=== PATIENT | female | born 1990 | race Caucasian/White ===

== ENCOUNTER 2018-03-22 01:33 | Inpatient (IN) | payer MEDICAID ==
[~2018-03-22] VITALS: Ht 162.6 cm; Wt 81.2 kg
[2018-03-22] MEDS ORDERED: ONDANSETRON ODT 4 MG PO ONE (02:00)
[2018-03-22] MEDS ORDERED: MORPHINE SULFATE 4 MG/ML, 1ML ONE ×2 (02:00→05:05)
[2018-03-22] MEDS ORDERED: ONDANSETRON ODT 4 MG ONE (02:00)
[2018-03-22] MEDS ORDERED: SODIUM CHLORIDE FLUSH 10ML SYR IVF ONE (02:00)
[2018-03-22] MEDS ORDERED: MORPHINE SULFATE 4 MG/ML, 1ML IVPush PRN (02:00)
[2018-03-22 02:21] LABS: MEAN CORPUSCULAR HEMOGLOBIN 30.9 pg (27.0-34.8); MEAN CORPUSCULAR VOLUME 90.9 fL (80-100); MEAN PLATELET VOLUME 9.1 fL (7.4-10.4); PLATELET COUNT 288 x10^3/uL (130-400); RED BLOOD COUNT 4.78 x10^6/uL (3.82-5.3); RED CELL DISTRIBUTION WIDTH 13.4 % (9.6-15.2)
[2018-03-22 02:25] LABS: MICROSCOPIC INDICATED
[2018-03-22 02:26] LABS: CULTURE INDICATED? YES
[2018-03-22 02:34] LABS: ALANINE AMINOTRANSFERASE 21 U/L (12-78); ALBUMIN 3.5 g/dL (3.4-5.0); ANION GAP 6 mmol/L (5-15); CALCIUM 8.9 mg/dL (8.5-10.1); CHLORIDE 106 mmol/L (98-107); CREATININE 0.83 mg/dL (0.55-1.02)
[2018-03-22 02:37] LABS: BASOPHILS # (AUTO) 0.04 x10^3/uL (0-0.1); BASOPHILS % (AUTO) 0 % (0-1); EOSINOPHILS % (AUTO) 0 % (1-7); LYMPHOCYTES # (AUTO) 2.52 x10^3/uL (1-3.4); LYMPHOCYTES % (AUTO) 10 % (22-44); MD SCAN; MONOCYTES # (AUTO) 0.46 x10^3/uL (0.2-0.8); MONOCYTES % (AUTO) 2 % (2-9); NEUTROPHILS # (AUTO) 23.52 x10^3/uL (1.8-6.8); NEUTROPHILS % (AUTO) 88 % (42-75)
[2018-03-22] MEDS ORDERED: CIPROFLOXACIN/PMX 400MG/200ML 200 ML IV ONE (03:00)
[2018-03-22] MEDS ORDERED: SODIUM CHLORIDE 0.9% 1,000ML IVBOLUS ONE (03:00)
[2018-03-22 03:06] LABS: AMPHETAMINE SCREEN, URINE Positive (Negative); BARBITURATE SCREEN, URINE Negative (Negative); BENZODIAZEPINE SCREEN, URINE Negative (Negative); CANNABINOID SCREEN, URINE Positive (Negative); COCAINE SCREEN, URINE Negative (Negative); METHADONE SCREEN, URINE Negative (Negative); OPIATE SCREEN, URINE Negative (Negative)
[2018-03-22 03:18] LABS: ALKALINE PHOSPHATASE 58 U/L (45-117); BILIRUBIN,TOTAL 0.5 mg/dL (0.2-1.0); TOTAL PROTEIN 7.6 g/dL (6.4-8.2)
[2018-03-22] MEDS ORDERED: OMNIPAQUE 350 MG/ML, 100ML BOTTLE ONE (03:31)
[2018-03-22] MEDS ORDERED: CIPROFLOXACIN/PMX 400MG/200ML 200 ML ONE (03:41)
[2018-03-22 05:41] VITALS: BP 113/76
[2018-03-22] MEDS ORDERED: ONDANSETRON 2MG/ML, 2ML IVPush PRN ×2 (06:00→16:30)
[2018-03-22] MEDS ORDERED: ACETAMINOPHEN 325 MG TABLET PO PRN (06:00)
[2018-03-22] MEDS ORDERED: morphine SULFATE 10 MG/ML, 1ML IVPush PRN (06:00)
[2018-03-22] MEDS ORDERED: SENNA/DOCUSATE TABLET PO PRN (06:00)
[2018-03-22] MEDS ORDERED: NICOTINE 21 MG/24 HR PATCH.TD24 TD SCH (06:00)
[2018-03-22] MEDS ORDERED: LACTATED RINGERS 1,000 ML IV SCH (06:00)
[2018-03-22] MEDS ORDERED: LACTATED RINGERS 1,000 ML IVBOLUS ONE (06:00)
[2018-03-22] MEDS: ENOXAPARIN 30 MG/0.3 ML SQ SCH ×2 (06:02→18:28)
[2018-03-22 07:09] VITALS: BP 106/68
[2018-03-22] MEDS: HYDROcodone/APAP 5/325 TABLET PO PRN ×2 (09:02→18:38)
[2018-03-22] MEDS: NICOTINE 21 MG/24 HR PATCH.TD24 TD SCH (11:19)
[2018-03-22 13:12] VITALS: BP 95/58
[2018-03-22] MEDS: CIPROFLOXACIN/PMX 400MG/200ML 200 ML IV SCH (16:06)
[2018-03-22] MEDS ORDERED: ONDANSETRON 2MG/ML, 2ML ONE (16:25)
[2018-03-22] MEDS: ONDANSETRON 2MG/ML, 2ML IVPush PRN (16:29)
[2018-03-22] MEDS ORDERED: ONDANSETRON ODT 4 MG PO PRN (16:30)
[2018-03-22] MEDS ORDERED: PROMETHAZINE 25 MG/ML, 1ML IM PRN (16:30)
[2018-03-22 20:03] VITALS: BP 100/65
[2018-03-23 00:40] VITALS: BP 106/65
[2018-03-23] MEDS: CIPROFLOXACIN/PMX 400MG/200ML 200 ML IV SCH ×2 (04:16→16:05)
[2018-03-23] MEDS: HYDROcodone/APAP 5/325 TABLET PO PRN (04:16)
[2018-03-23 05:49] LABS: BASOPHILS # (AUTO) 0.03 x10^3/uL (0-0.1); BASOPHILS % (AUTO) 0 % (0-1); EOSINOPHILS # (AUTO) 0.29 x10^3/uL (0-0.4); EOSINOPHILS % (AUTO) 5 % (1-7); LYMPHOCYTES # (AUTO) 2.41 x10^3/uL (1-3.4); LYMPHOCYTES % (AUTO) 37 % (22-44); MD NO; MEAN CORPUSCULAR HEMOGLOBIN 30.4 pg (27.0-34.8); MEAN CORPUSCULAR VOLUME 92.3 fL (80-100); MEAN PLATELET VOLUME 9.4 fL (7.4-10.4); MONOCYTES # (AUTO) 0.28 x10^3/uL (0.2-0.8); MONOCYTES % (AUTO) 4 % (2-9); NEUTROPHILS # (AUTO) 3.51 x10^3/uL (1.8-6.8); NEUTROPHILS % (AUTO) 54 % (42-75); PLATELET COUNT 240 x10^3/uL (130-400); RED BLOOD COUNT 4.21 x10^6/uL (3.82-5.3); RED CELL DISTRIBUTION WIDTH 13.9 % (9.6-15.2)
[2018-03-23 05:55] LABS: CHLORIDE 105 mmol/L (98-107)
[2018-03-23 06:00] LABS: ANION GAP 9 mmol/L (5-15); CALCIUM 8.6 mg/dL (8.5-10.1); CREATININE 0.48 mg/dL (0.55-1.02)
[2018-03-23] MEDS ORDERED: POTASSIUM CHLORIDE 20 MEQ in SODIUM CHLORIDE 0.9% 250 ML IV ONE (06:30)
[2018-03-23] MEDS ORDERED: POTASSIUM CHLORIDE 20 MEQ TAB.ER.PRT PO ONE (06:30)
[2018-03-23] MEDS: ENOXAPARIN 30 MG/0.3 ML SQ SCH (06:31)
[2018-03-23 06:41] VITALS: BP 101/66
[2018-03-23] MEDS: ONDANSETRON 2MG/ML, 2ML IVPush PRN (07:48)
[2018-03-23] MEDS: NICOTINE 21 MG/24 HR PATCH.TD24 TD SCH (11:20)
[2018-03-23 14:29] LABS: ANION GAP 4 mmol/L (5-15); CALCIUM 8.8 mg/dL (8.5-10.1); CHLORIDE 107 mmol/L (98-107)
[2018-03-23 14:40] VITALS: BP 114/75
[2018-03-23] MEDS ORDERED: CIPR250T27 PO (15:25)
== END 2018-03-23 18:06 | disposition home or self-care (01) | DRG 872 ==
LOC: ED 04:17 → EDIP 04:26 → 4EST 05:36
PROVIDERS: ADMIT Internal Medicine; ATTEND Internal Medicine
DX: A41.9 Sepsis, unspecified organism (principal); N10 Acute pyelonephritis; F19.20 Other psychoactive substance dependence, uncomplicated; E11.9 Type 2 diabetes mellitus without complications; M32.9 Systemic lupus erythematosus, unspecified; F17.210 Nicotine dependence, cigarettes, uncomplicated; R65.20 Severe sepsis without septic shock; K52.9 Noninfective gastroenteritis and colitis, unspecified; Z85.41 Personal history of malignant neoplasm of cervix uteri; Z86.14 Personal history of Methicillin resistant Staphylococcus aureus infection; Z88.1 Allergy status to other antibiotic agents; Z90.49 Acquired absence of other specified parts of digestive tract; Z88.6 Allergy status to analgesic agent; Z83.3 Family history of diabetes mellitus
CPT/HCPCS: 36415; 74177; 80048; 80053; 80307; 81001; 83605; 83690; 84145; 84703; 85025; 87040; 87077; 87086; 87186; 87491; 87591; 96365; 96375; J0744; J1650; J2405; J3480; Q0162; Q9967; J2270; J7030; J7050; J7120

== ENCOUNTER 2018-03-28 16:27 | Emergency (ER) | payer MEDICAID ==
[~2018-03-28] VITALS: Ht 162.6 cm; Wt 70.0 kg
[~2018-03-28 16:27] MED LIST: CIPR250T27 PO
[2018-03-28 16:43] VITALS: BP 145/92
[2018-03-28] MEDS ORDERED: AZITHROMYCIN 500 MG TABLET ONE (17:20)
[2018-03-28] MEDS ORDERED: CEFTRIAXONE 250 MG ONE (17:20)
[2018-03-28] MEDS ORDERED: CEFTRIAXONE 250 MG IM ONE (17:30)
[2018-03-28] MEDS ORDERED: AZITHROMYCIN 500 MG TABLET PO ONE (17:30)
== END 2018-03-28 18:06 | disposition home or self-care (01) ==
LOC: ED 18:00
DX: A54.9 Gonococcal infection, unspecified (principal); F17.200 Nicotine dependence, unspecified, uncomplicated; M54.5 Low back pain
CPT/HCPCS: 96372; 99283; J0696

== ENCOUNTER 2019-07-08 15:41 | Emergency (ER) | payer MEDICAID ==
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
[2019-07-08] MEDS ORDERED: LIDOCAINE-MPF 1%, 5ML ONE (16:21)
--- NOTE | 2019-07-08 16:25 | NUR ---
ERP WAS IN TO SEE PT. HARD C-COLLAR APPLIED PER ERP. [employer] AT BS TALKING TO PT. FRIEND ALSO AT BS.
--- NOTE | 2019-07-08 16:41 | NUR ---
PT TO CT VIA [facility].
--- NOTE | 2019-07-08 17:45 | NUR ---
ER PA & RESIDENT AT BS TO IRRIGATE AND SUTURE L UPPER ARM LAC.
[2019-07-08] MEDS ORDERED: LIDOCAINE-MPF 1%, 5ML INFIL ONE (18:30)
--- NOTE | 2019-07-08 18:36 | NUR ---
L UPPER ARM LAC SUTURED BY RESIDENT AND ER IMMANUEL. PT TOLERATED WELL. D/C INSTRUCTIONS & F/U APPT RV'WD WITH PT, SHE VERBALIZES UNDERSTANDING. MOTHER AT BS, TO TAKE PT HOME. Addendum: 07/08/19 at 1912 by HBENSON DRESSING APPLIED TO L ARM WOUND: XEROFORM, STERILE GAUZE, KERLIX WRAP. EXTRA DRESSING SUPPLIES PROVIDED TO PT. INSTRUCTED PT ON WOUND CARE AND SUTURE REMOVAL IN 7 DAYS. Addendum: 07/08/19 at 1915 by HBENSON INSTRUCTED PT ON S/S OF INFECTION. COMMUNITY RESOURCES INCLUDING WOMEN'S SHELTERS & HOTLINES PROVIDED TO PT.
[2019-07-08 18:37] VITALS: BP 132/84
== END 2019-07-08 18:40 | disposition home or self-care (01) ==
LOC: ED 18:34
DX: S41.112A Laceration without foreign body of left upper arm, initial encounter (principal); F17.200 Nicotine dependence, unspecified, uncomplicated; Z85.41 Personal history of malignant neoplasm of cervix uteri; Y04.8XXA Assault by other bodily force, initial encounter; Y93.89 Activity, other specified; Y92.410 Unspecified street and highway as the place of occurrence of the external cause; Y99.8 Other external cause status
CPT/HCPCS: 12032; 70450; 72125